=== PATIENT | male | born 1945 | race Caucasian/White ===

== ENCOUNTER → 2016-10-26 | Outpatient (CLI) | payer MEDICARE, OTHER ==
[~2016-10-26] MED LIST: ABILIFY PO; ACETAMINOPHEN PO; ADDERALL10 MG PO; ADDERALLXR PO; ADVAIR 2501 DISK W/D PO; ADVAIR INH; ALBUTEROL17 GM INH; AMBIEN PO; ASPIRIN PO; ATIVAN PO; ATROVENT HFA12.9 GM INH; BENADRYL PO; CLARITIN10 MG PO; CYMBALTA PO; DEMEROL PO; FIORICET W/CODE1 CAP PO; FIORINAL CAPSUL1 CAP PO; FLONASE16 GM; LAMICTAL PO; LEXAPRO PO; LISINOPRIL PO; LORTAB 7.5-5001 TAB PO; PRILOSEC PO; PRILOSEC40 MG PO; REGLAN PO; RISPERDAL1 M1 PO; SINGULAIR PO; SPIRIVA18 MCG INH; SPIRIVA18 MCG PO; VALPROIC ACID PO
== END | disposition home or self-care (01) ==
LOC: CLAB 10:57
DX: C61 Malignant neoplasm of prostate (principal)
CPT/HCPCS: 36415; 84153